=== PATIENT | male | born 1990 | race Asian ===

== ENCOUNTER 2016-11-22 17:15 | Emergency (ER) | payer BC ==
[~2016-11-22] VITALS: Ht 182.9 cm; Wt 99.8 kg
[2016-11-22 17:20] VITALS: BP 155/79
[2016-11-22] MEDS ORDERED: [UNRECOGNIZED DRUG - OTHER] (17:25)
[2016-11-22] MEDS ORDERED: Famotidine 20 MG/ 2ML VIAL IVP ONE (17:45)
[2016-11-22] MEDS ORDERED: Dicyclomine HCl 10mg/5ml oral soln ORAL ONE (17:45)
--- NOTE | 2016-11-22 17:48 | Emergency Room Report ---
History of Present Illness General Chief Complaint: Abdominal Pain Source: Patient Present Illness HPI 26YOM [employer] walk-in with 3 days abd pain and constipation pain initially epigastric, then moved to right side and now LUQ Went to 2 days ago, got ?go-lytely, had multiple watery dark bowel movements Still with some nausea 4 days ago had 2 days straight of heavy drinking at night followed by vomiting/ hangover Denies other medical problems, previous surgery Only takes vitamins daily Denies opiods, NSAIDs Allergies: Coded Allergies: TETRACYCLINES (Verified Allergy, Unknown, 11/22/16) Uncoded Allergies: CATS (Allergy, Unknown, 11/22/16) Patient History Past Medical History: none Past Surgical History: none Pertinent Family History: none Social History: Reports: alcohol use Immunizations: UTD Reviewed Nursing Documentation: PMH: Agreed, PSxH: Agreed Nursing Documentation-PMH Past Medical History: No Stated History Review of Systems All Other Systems: negative except mentioned in HPI Physical Exam Vital Signs Date Time Temp Pulse Resp B/P (MAP) Pulse Ox O2 Delivery O2 Flow Rate FiO2 11/22/16 17:20 99.7 106 16 155/79 97 Room Air Sp02 EP Interpretation: reviewed, normal General Appearance: normal inspection, well appearing, no apparent distress, alert, GCS 15, non-toxic Head: normocephalic, atraumatic Eyes: bilateral eye PERRL, bilateral eye EOMI ENT: normal ENT inspection, hearing grossly normal, normal voice Neck: normal inspection, full range of motion, supple, no bony tend Respiratory: normal inspection, lungs clear, normal breath sounds, no respiratory distress, no retraction, no wheezing Cardiovascular #1: regular rate, rhythm, no edema Gastrointestinal: normal inspection, normal bowel sounds, soft, no guarding, no hernia, other - +epigastric and RUQ ttp. No rebound, peritonitis Genitourinary: no CVA tenderness Musculoskeletal: normal inspection, back normal, normal range of motion, Amanda' s Sign negative Neurologic: normal inspection, alert, oriented x3, responsive, animal damage control agent III-XII nml as tested, motor strength/tone normal, speech normal Psychiatric: normal inspection, judgement/insight normal, mood/affect normal Skin: normal inspection, normal color, no rash Medical Decision Making Diagnostic Impression: Primary Impression: Abdominal pain Qualified Codes: R10.13 - Epigastric pain Additional Impressions: Alcoholic gastritis Qualified Codes: K29.20 - Alcoholic gastritis without bleeding Pancreatitis Qualified Codes: K85.20 - Alcohol induced acute pancreatitis without necrosis or infection ER Course 26YOM with abd pain for 2 days In context of heavy ETOH 4 days prior Likely gastritis No fever or leuks. LFTs normal Lipase 57, ?resolving pancreatitis Improved in ED with pepcid In shared decision, will DC with pepcid If no improvement or worsening, patient to come back and see me in 2 days for CTAP DC home EKG Diagnostic Results Rate: normal Rhythm: NSR ASA given to the pt in ED: No Rhythm Strip Diag. Results EP Interpretation: yes Rate: 91 Rhythm: NSR, no PVC's, no ectopy Last Vital Signs Date Time Temp Pulse Resp B/P (MAP) Pulse Ox O2 Delivery O2 Flow Rate FiO2 11/22/16 17:20 99.7 106 16 155/79 97 Room Air Status: improved Disposition: HOME, SELF-CARE CECILIA COUGHLIN M.D. Nov 22, 2016 17:48
[2016-11-22 18:02] LABS: BASOPHILS % (AUTO) 0.9 % (0.0-2.0); EOSINOPHILS % (AUTO) 1.7 % (0.0-3.0); LYMPHOCYTES % (AUTO) 20.8 % (20.0-45.0); MEAN CORPUSCULAR HEMOGLOBIN 34.3 PG (27.0-31.0); MEAN CORPUSCULAR HGB CONC 34.6 G/DL (32.0-36.0); MEAN CORPUSCULAR VOLUME 99 FL (80-99); MONOCYTES % (AUTO) 6.1 % (1.0-10.0); NEUTROPHILS % (AUTO) 70.5 % (45.0-75.0); PLATELET COUNT 225 K/UL (150-450); RED BLOOD COUNT 4.29 M/UL (4.70-6.10); RED CELL DISTRIBUTION WIDTH 12.3 % (11.6-14.8); WHITE BLOOD COUNT 10.8 K/UL (4.8-10.8)
[2016-11-22 18:06] LABS: APPEARANCE,URINE CLEAR; KETONES,URINE NEGATIVE (NEGATIVE); LEUKOCYTE ESTERASE ,URINE NEGATIVE (NEGATIVE); NITRITE,URINE NEGATIVE (NEGATIVE); PH,URINE 6.5 (4.5-8.0); PROTEIN,URINE NEGATIVE (NEGATIVE); UROBILINOGEN,URINE NORMAL MG/DL (0.0-1.0)
[2016-11-22 18:16] LABS: RBC,URINE 0-2 /HPF (0 - 0); WBC,URINE 0-2 /HPF (0 - 0)
[2016-11-22 18:21] LABS: TROPONIN I < 0.30 ng/mL (<=0.30)
[2016-11-22 18:22] LABS: ALBUMIN/GLOBULIN RATIO 1.1 (1.0-2.7); ANION GAP 15 (5-15); CALCIUM 9.6 mg/dL (8.6-10.2); CARBON DIOXIDE 24 mEQ/L (20-30); CHLORIDE 102 mEQ/L (98-107); CREATININE 0.7 mg/dL (0.7-1.2); GLOMERULAR FILTRATION RATE > 60 mL/min (>60); HEMOLYSIS 27; LIPASE 57 U/L (< 60); POTASSIUM 3.9 mEQ/L (3.4-4.9); SODIUM 141 mEQ/L (135-145); TOTAL PROTEIN 7.9 g/dL (6.6-8.7)
[2016-11-22 18:33] LABS: ALANINE AMINOTRANSFERASE 5 U/L (3-41); ASPARTATE AMINO TRANSFERASE 31 U/L (5-40)
[2016-11-22] MEDS ORDERED: PEPCID20 MG ORAL (18:46)
[2016-11-22 18:48] VITALS: BP 122/66
[2016-11-22 18:49] VITALS: BP 122/66
== END 2016-11-22 18:50 | disposition home or self-care (01) ==
LOC: EMR 17:41
DX: R10.13 Epigastric pain (principal); K29.20 Alcoholic gastritis without bleeding; K85.20 Alcohol induced acute pancreatitis without necrosis or infection; Z88.8 Allergy status to other drugs, medicaments and biological substances; Z91.09 Other allergy status, other than to drugs and biological substances
CPT/HCPCS: 36415; 80053; 81003; 83690; 84484; 85025; 93005; 96374; 96375; 99284; J2405; S0028

== ENCOUNTER 2017-11-30 23:48 | Emergency (ER) | payer BC, OTHER ==
[~2017-11-30] VITALS: Ht 180.3 cm; Wt 99.8 kg
[~2017-11-30 23:48] MED LIST: PEPCID20 MG ORAL; [UNRECOGNIZED DRUG - OTHER]
[2017-11-30] MEDS ORDERED: VITAMINS (23:56)
[2017-12-01 00:02] VITALS: BP 131/90
[2017-12-01] MEDS ORDERED: Lidocaine 1% MPF 10mg/ml 5ml ONE (00:10)
[2017-12-01] MEDS ORDERED: Lidocaine 1% Plain 30 ml INJ ONE ×2 (00:13→00:15)
--- NOTE | 2017-12-01 00:14 | Emergency Room Report ---
History of Present Illness General Chief Complaint: Laceration Source: Patient Present Illness HPI Is a 27-year-old male who is left-hand dominant. He presents with a laceration to his right hand. He was cutting vegetables and cut himself at the base of the index finger. No other injury. Occurred about an hour ago. No active bleeding. Tetanus is up-to-date. Mild pain. Worse with movement. Allergies: Coded Allergies: TETRACYCLINES (Verified Allergy, Unknown, 11/22/16) Uncoded Allergies: CATS (Allergy, Unknown, 11/22/16) Patient History Past Medical History: see triage record, old chart reviewed Past Surgical History: none Pertinent Family History: none Social History: Denies: smoking Immunizations: UTD Reviewed Nursing Documentation: PMH: Agreed; PSxH: Agreed Nursing Documentation-PMH Past Medical History: No Stated History Review of Systems Eye: Denies: eye pain, blurred vision ENT: Denies: ear pain, nose congestion, throat swelling Respiratory: Denies: cough, shortness of breath Cardiovascular: Denies: chest pain, palpitations Gastrointestinal: Denies: abdominal pain, diarrhea, nausea, vomiting Musculoskeletal: Denies: back pain, joint pain Skin: Denies: rash Neurological: Denies: headache, numbness Endocrine: Denies: increased thirst, increased urine Hematologic/Lymphatic: Denies: easy bruising All Other Systems: negative except mentioned in HPI Physical Exam Vital Signs Date Time Temp Pulse Resp B/P (MAP) Pulse Ox O2 Delivery O2 Flow Rate FiO2 11/30/17 23:52 98.7 81 16 131/90 94 Room Air 98.8 vitals normal Sp02 EP Interpretation: reviewed, normal General Appearance: well appearing, no apparent distress, alert Head: normocephalic, atraumatic Eyes: bilateral eye PERRL, bilateral eye EOMI ENT: hearing grossly normal, normal pharynx Neck: full range of motion, supple, no meningismus Respiratory: chest non-tender, lungs clear, normal breath sounds Cardiovascular #1: regular rate, rhythm, no murmur Gastrointestinal: normal bowel sounds, non tender, no mass, no organomegaly, no bruit, non-distended Musculoskeletal: back normal, gait/station normal, normal range of motion, other - Right hand: The base of the index finger over the pad, there is a 1 cm laceration. No foreign body. No tendon laceration. Full range of motion of MCP, PIP, and DIP joint. Neurologic: alert, oriented x3 Psychiatric: mood/affect normal Skin: warm/dry Procedures Laceration/Wound Repair Laceration/Wound Repair : Consent: Verbal Wound Location: upper extremity Wound's Depth, Shape: linear Wound Length (cm): 2 Wound Explored: clean Irrigated w/ Saline (ccs): 1000 Betadine Prep?: Yes Anesthesia: 1% Lidocaine Volume Anesthetic (ccs): 3 Wound Repaired With: sutures Suture Size/Type: 4:0, proline Number of Sutures: 3 Patient Tolerated: Well Complications: None Medical Decision Making Diagnostic Impression: Primary Impression: Laceration ER Course Patient with a laceration to his hand. No evidence of foreign body or tendon laceration. Low risk for infection. We'll discharge home. Last Vital Signs Date Time Temp Pulse Resp B/P (MAP) Pulse Ox O2 Delivery O2 Flow Rate FiO2 12/01/17 00:02 98.8 16 131/90 94 Room Air 98.8 11/30/17 23:52 81 Status: improved Disposition: HOME, SELF-CARE Condition: Stable Referrals: NOT CHOSEN IPA/,REFERRING (PCP) Patient Instructions: Laceration Care, Adult Additional Instructions: Keep wound clean. Follow-up in 7-10 days for suture removal. Return if symptom worsen. NATALI LYN M.D. Dec 01, 2017 00:14
[2017-12-01] MEDS ORDERED: Bacitracin Oint UD TOPIC ONE ×2 (00:32→00:45)
[2017-12-01 00:42] VITALS: BP 131/90
== END 2017-12-01 00:45 | disposition home or self-care (01) ==
LOC: EMR 23:59
DX: S61.210A Laceration without foreign body of right index finger without damage to nail, initial encounter (principal); X78.1XXA Intentional self-harm by knife, initial encounter; Y93.G3 Activity, cooking and baking; Y92.9 Unspecified place or not applicable; Y99.9 Unspecified external cause status
CPT/HCPCS: 12001; 99283; J2001